=== PATIENT | female | born 1980 | race Caucasian/White ===

== ENCOUNTER 2016-07-29 18:49 | Emergency (ER) | payer OTHER ==
[2016-07-29 20:56] VITALS: BP 132/73
== END 2016-07-29 20:56 | disposition home or self-care (01) ==
LOC: ED 18:49
DX: S80.01XA Contusion of right knee, initial encounter (principal); M19.90 Unspecified osteoarthritis, unspecified site; G62.9 Polyneuropathy, unspecified; G43.909 Migraine, unspecified, not intractable, without status migrainosus; E66.01 Morbid (severe) obesity due to excess calories; M51.9 Unspecified thoracic, thoracolumbar and lumbosacral intervertebral disc disorder; W10.9XXA Fall (on) (from) unspecified stairs and steps, initial encounter; Y93.89 Activity, other specified; Y92.89 Other specified places as the place of occurrence of the external cause; Y99.8 Other external cause status
CPT/HCPCS: Q0092

== ENCOUNTER 2016-10-11 14:36 | Emergency (ER) | payer OTHER ==
[~2016-10-11] VITALS: Ht 165.1 cm; Wt 113.4 kg
[2016-10-11 17:45] VITALS: BP 134/88
== END 2016-10-11 18:07 | disposition left against medical advice (07) ==
LOC: ED 14:36
DX: S80.11XA Contusion of right lower leg, initial encounter (principal); E66.01 Morbid (severe) obesity due to excess calories; M16.0 Bilateral primary osteoarthritis of hip; G62.9 Polyneuropathy, unspecified; G43.909 Migraine, unspecified, not intractable, without status migrainosus; M81.0 Age-related osteoporosis without current pathological fracture; M51.36 Other intervertebral disc degeneration, lumbar region; G35 Multiple sclerosis; W01.0XXA Fall on same level from slipping, tripping and stumbling without subsequent striking against object, initial encounter; Y93.89 Activity, other specified; Y99.8 Other external cause status; Y92.098 Other place in other non-institutional residence as the place of occurrence of the external cause